=== PATIENT | female | born 1950 | race Caucasian/White ===

== ENCOUNTER 2018-07-22 09:05 | Observation (INO) | payer BC, OTHER ==
--- NOTE | 2018-07-22 09:14 | PDOC ---
History of Present Illness - General Chief Complaint: Tachycardia Stated Complaint: FAST HEART RATE Time Seen by Provider: 07/22/18 09:14 - History of Present Illness Initial Comments: 07/22/18 09:35 Ms. Fu is a 68 yo female w/ pmh of prior episodes of obesity, afib ( intermittent, not on ac), previous anemia, Hepatitis C (s/p treatment 3 years ago), recently finished ABX for sinus infection 2 days ago (unknown which) who presents for evaluation of palpitations and chest pressure since she woke up this morning around 0730. Patient reports she has never had symptoms lasting this long in the past and elected to come in for further evaluation. Denies any chest pain, denies shortness of breath, denies any other associated symptoms. The patient denies chest pain, shortness of breath, headache and dizziness. Denies fever, chills, nausea, vomit, diarrhea and constipation. Denies dysuria, frequency, urgency and hematuria. Past History - Past Medical History Allergies/Adverse Reactions: Allergies Allergy/AdvReac Type Severity Reaction Status Date / Time Cephalosporins Allergy Difficulty Verified 07/22/18 09:06 Breathing Home Medications: Ambulatory Orders NK [No Known Home Medication] 07/22/18 COPD: No Other medical history: OBESITY - Suicide/Smoking/Psychosocial Hx Smoking History: Former smoker Have you smoked in the past 12 months: No Information on smoking cessation initiated: No Hx Alcohol Use: No Review of Systems - Review of Systems Comments:: 07/22/18 09:36 GENERAL/CONSTITUTIONAL: No fever or chills. No weakness. HEAD, EYES, EARS, NOSE AND THROAT: No change in vision. No ear pain or discharge. No sore throat. CARDIOVASCULAR: +Palpitations /chest pressure as described. No chest pain or shortness of breath RESPIRATORY: No cough, wheezing, or hemoptysis. GASTROINTESTINAL: No nausea, vomiting, diarrhea or constipation. GENITOURINARY: No dysuria, frequency, or change in urination. MUSCULOSKELETAL: No joint or muscle swelling or pain. No neck or back pain. SKIN: No rash NEUROLOGIC: No headache, vertigo, loss of consciousness, or change in strength/ sensation. ENDOCRINE: No increased thirst. No abnormal weight change HEMATOLOGIC/LYMPHATIC: No anemia, easy bleeding, or history of blood clots. ALLERGIC/IMMUNOLOGIC: No hives or skin allergy. *Physical Exam - Vital Signs Last Vital Signs Temp Pulse Resp BP Pulse Ox 98.1 F 153 H 20 153/82 98 07/22/18 09:05 07/22/18 09:05 07/22/18 09:05 07/22/18 09:05 07/22/18 09:05 - Physical Exam Comments: 07/22/18 09:36 GENERAL: Awake, alert, and fully oriented, in no acute distress HEAD: No signs of trauma, normocephalic, atraumatic EYES: PERRLA, EOMI, sclera anicteric, conjunctiva clear ENT: Auricles normal inspection, hearing grossly normal, nares patent, oropharynx clear without exudates. Moist mucosa NECK: Normal ROM, supple, no lymphadenopathy, JVD, or masses LUNGS: +Exam limited by body habitus, however No distress, speaks full sentences , clear to auscultation bilaterally HEART: Regular rate and rhythm, normal S1 and S2, no murmurs, rubs or gallops, peripheral pulses normal and equal bilaterally. ABDOMEN: Soft, nontender, normoactive bowel sounds. No guarding, no rebound. No masses EXTREMITIES: Normal inspection, Normal range of motion, no edema. No clubbing or cyanosis. NEUROLOGICAL: Cranial nerves II through XII grossly intact. Normal speech, normal gait, no focal sensorimotor deficits SKIN: Warm, Dry, normal turgor, no rashes or lesions noted. 07/22/18 11:32 Moderate Sedation - Procedure Monitoring Vital Signs: Procedure Monitoring Vital Signs Temperature 98.1 F 07/22/18 09:05 Pulse Rate 153 H 07/22/18 09:05 Respiratory Rate 20 07/22/18 09:05 Blood Pressure 153/82 07/22/18 09:05 O2 Sat by Pulse Oximetry (%) 98 07/22/18 09:05 ED Treatment Course - LABORATORY CBC & Chemistry Diagram: 07/22/18 09:30 07/22/18 09:30 Medical Decision Making - Critical Care Time Total Critical Care Time (minutes): 30 Critical Care Statement: The care of this patient involved high complexity decision making to prevent further life threatening deterioration of the patient 's condition and/or to evaluate & treat vital organ system(s) failure or risk of failure. - Medical Decision Making 07/22/18 11:32 Ms. Fu is a 68 yo female w/ pmh as described who presents for evaluation of symptoms concerning for ACS vs. PE vs. anxiety. EKG done at arrival revealed 2: 1 aflutter pattern. Patient rate controlled with 20mg IV diltiazem which slowed patient to 80's and revealed afib rhythm. Patient given ASA and 1L NS. Patient later noted to have converted to sinus rhythm in 80's with no further intervention. 07/22/18 11:37 Patient labs grossly wnl as below. Discussed patient with [employer] Apprentice (Dr. Wilson covering for Dr. Costello) who has not seen patient in over a year. Last echo from 2010. Last EKG distant as well. No further history available. Discussed patient with hospitalist who will admit for cards consult. Chest CTA also ordered after CXR revealed concern for fluid in left lung ward to r/o pneumonia vs. possible PE as exacerbating factor. 07/22/18 12:28 Discussed patient with covering service for Dr. Gaston who recommended Heparin drip and will follow-up inpatient. Chest CTA negative. Laboratory Results - last 24 hr 07/22/18 07/22/18 07/22/18 09:30 09:30 09:30 WBC 6.9 RBC 5.14 Hgb 16.0 H Hct 47.7 H MCV 92.7 MCH 31.2 MCHC 33.7 RDW 12.5 Plt Count 275 MPV 7.5 Absolute Neuts (auto) 5.0 Neutrophils % 73.0 Lymphocytes % 17.0 Monocytes % 8.1 Eosinophils % 1.7 Basophils % 0.2 PT with INR 12.0 INR 1.07 Sodium 135 L Potassium 4.0 Chloride 104 Carbon Dioxide 27 Anion Gap 4 L BUN 9 Creatinine 0.6 Creat Clearance w eGFR > 60 Random Glucose 123 H Calcium 8.9 Magnesium 2.1 Total Bilirubin 1.1 H AST 27 ALT 24 Alkaline Phosphatase 102 Troponin I Total Protein 7.5 Albumin 3.9 Urine Color Urine Appearance Urine pH Ur Specific [place] Urine Protein Urine Glucose (UA) Urine Ketones Urine Blood Urine Nitrite Urine Bilirubin Urine Urobilinogen Ur Leukocyte Esterase 07/22/18 07/22/18 09:30 10:23 WBC RBC Hgb Hct MCV MCH MCHC RDW Plt Count MPV Absolute Neuts (auto) Neutrophils % Lymphocytes % Monocytes % Eosinophils % Basophils % PT with INR INR Sodium Potassium Chloride Carbon Dioxide Anion Gap BUN Creatinine Creat Clearance w eGFR Random Glucose Calcium Magnesium Total Bilirubin AST ALT Alkaline Phosphatase Troponin I < 0.03 Total Protein Albumin Urine Color Yellow Urine Appearance Clear Urine pH 8.5 H Ur Specific [place] 1.015 Urine Protein Negative Urine Glucose (UA) Negative Urine Ketones Negative Urine Blood Negative Urine Nitrite Negative Urine Bilirubin Negative Urine Urobilinogen 0.2 Ur Leukocyte Esterase Negative *DC/Admit/Observation/Transfer Diagnosis at time of Disposition: Atrial fibrillation with RVR Afib Qualifiers: Atrial fibrillation type: unspecified Qualified Code(s): I48.91 - Unspecified atrial fibrillation - Discharge Dispostion Condition at time of disposition: Stable Decision to Admit order: Yes - Referrals - Patient Instructions - Post Discharge Activity
[2018-07-22] MEDS ORDERED: SODIUM CHLORIDE 1,000 ML IV STA (09:32)
[2018-07-22] MEDS ORDERED: ASPIRIN 81 MG CHEWABLE TABLETS PO ONE (09:32)
[2018-07-22] MEDS ORDERED: dilTIAZem HCL 50 MG/10 ML - 10 ML VIAL IVPUSH ONE (09:39)
[2018-07-22] MEDS ORDERED: ASPIRIN 81 MG CHEWABLE TABLETS ONE (09:39)
[2018-07-22] MEDS ORDERED: dilTIAZem HCL 50 MG/10 ML - 10 ML VIAL ONE (09:42)
[2018-07-22 09:50] LABS: BASO % 0.2 % (0-2.0); EOS % 1.7 % (0-4.5); HEMATOCRIT 47.7 % (32.4-45.2); MCH 31.2 pg (25.7-33.7); MCHC 33.7 g/dl (32.0-36.0); MEAN CELL VOLUME 92.7 fl (80-96); MEAN PLT VOLUME 7.5 fl (7.5-11.1); MONO % 8.1 % (3.8-10.2); PLATELET COUNT 275 K/MM3 (134-434); RBC 5.14 M/mm3 (3.60-5.2); RDW 12.5 % (11.6-15.6); WHITE BLOOD COUNT 6.9 K/mm3 (4.0-10.8)
[2018-07-22 09:57] LABS: INR 1.07 (0.82-1.09)
[2018-07-22 10:02] LABS: ALBUMIN 3.9 g/dl (3.4-5.0); ALK PHOS 102 U/L (45-117); ANION GAP 4 MMOL/L (8-16); BILIRUBIN,TOTAL 1.1 mg/dl (0.2-1); BLOOD UREA NITROGEN 9 mg/dl (7-18); CALCIUM 8.9 mg/dl (8.5-10); CHLORIDE 104 mmol/L (98-107); CO2 27 mmol/L (21-32); CREATININE 0.6 mg/dl (0.55-1.3); GLUCOSE,RANDOM 123 mg/dl (74-106); MAGNESIUM 2.1 mg/dL (1.8-2.4); SGOT/AST 27 U/L (15-37); SGPT/ALT 24 U/L (13-61); SODIUM 135 mmol/L (136-145); TOT PROT 7.5 g/dl (6.4-8.2)
--- NOTE | 2018-07-22 10:16 | PDOC ---
Attending Attestation - Resident Resident Name: MargaritaManuel - ED Attending Attestation I have performed the following: I have examined & evaluated the patient, The case was reviewed & discussed with the resident, I agree w/resident's findings & plan, Exceptions are as noted - HPI HPI: 07/22/18 10:09 68 yo F h/o hep c ( treated) anemia intermittent afib here with c/o palpitations and chest presure. starting today. pt states she recently finished abx for sinus infection. has not seen pcp in long time, saw professor of practice over one year ago dr Costello. does not take blood thinners or rate control meds. not currently on any prescription medications. except eye drops. no sob. no leg swelling. no n/v feeling better overall since at hospital. feels pressure radiated to her back and arm " could feel her hear beat in her back" - Physicial Exam PE: 07/22/18 10:12 awake alert lungs clear bilaterally heart irreg reg. abd soft obese nt. ext wwp no edema. no calf tenderness pulses symmetric. nuero alert oriented x 3. - Medical Decision Making 07/22/18 10:12 differential anemia. electrolyte abnormality. thyroid dysfunction, infection , such as uti pln cxr ekg labs trop tsh ua. will likely require admission for afib. will d/w professor of practice for anticoagulation. rate control with diltizaem 20 mg. pt rate improved from 150 to 89. will observe, due to r/o acs, and rate control. 07/22/18 11:07 d/wdr melinda covering for dr costello, states hasn't seen dr costello since 2014. no h/o afib in file. pt had echo and stress in 2010 which was reportedly normal, but had st depressions on her ekg per note. 07/22/18 11:28 focused ED ultrasound TTE indication sob, chest pain new onset afib. cardiac views obtained using phased array probe in parasternal long and short, subxiphoid, and apical. difficult due to body habitus. no visualized pericardial effusion. no rv dilation or strain pattern. good contractility. impression: normal TTE bilat lungs scanned. no plueral effusion noted although limited due to body habitus. bilat lung sliding. impression: normal lung exam.no plueral effusion plan ct chest due to suspicion for pleural effusion on cxr vs. infilatre. p pt h/o cough, nonproductive. also described sob and feeling dizzy with ambulating with dog recently. 07/22/18 11:33 pt with repeat ekg now in sinus rhythm. heart rate in 50's. Heart Score/ECG Review #1 General ECG Interpretation: No acute ischemic changes Compared to previous ECG there are: Other (afib with rvr 153 bpm) #2 General ECG Interpretation: Sinus Rhythm, Normal Rate (61), Normal Intervals, No acute ischemic changes ED Point of Care Ultrasound Performing Physician: Kaylie Lagunas Assisting/Performing Resident: Manuel Avila Procedures - Bedside Ultrasound Bedside Ultrasound: Cardiac Other: normal echo see mdm
[2018-07-22 10:26] LABS: PH,URINE 8.5 (4.5-8); URINE APPEARANCE Clear; URINE BILIRUBIN Negative (NEGATIVE); URINE COLOR Yellow; URINE GLUCOSE (UA) Negative (NEGATIVE); URINE KETONE Negative (NEGATIVE); URINE LEUK ESTERASE Negative (NEGATIVE); URINE NITRITE Negative (NEGATIVE); URINE PROTEIN Negative (NEGATIVE); URINE UROBILINOGEN 0.2 (0.2-1.0)
[2018-07-22] MEDS ORDERED: HEPARIN NA (PORCINE) 5,000 UNITS/ML 1ML VIAL IVPUSH PRN ×2 (12:27)
[2018-07-22] MEDS ORDERED: HEPARIN NA (PORCINE) 5,000 UNITS/ML 1ML VIAL ONE (12:32)
[2018-07-22] MEDS ORDERED: HEPARIN INFUSION - 25,000 UNITS/500 ML INFUS.BAG IVPB ONE (12:33)
[2018-07-22] MEDS: HEPARIN - 25,000 UNIT in SODIUM CHLORIDE 495 ML IV SCH (12:45)
--- NOTE | 2018-07-22 13:35 | CONSULT ---
Consult Consult Specialty:: Cardiology Referred by:: ED Reason for Consultation:: Atrial Flutter - History of Present Illness Chief Complaint: Palpitations History of Present Illness: 68 yo female Followed by outside cardiology (Dr. Nestor Costello), last seen 1 year ago. Followed for general CV risk assessment/reduction May have been told to have ?atrial fibrillation in the past. Prior HepC s/p treatment 3 years ago Now presents with sudden onset of severe palpitations. Initial ECG done at 09:17 on 07/22/2018 showed AFL 2:1 with VR 150s. Received IV dilt and reportedly developed AF to 80s and eventual NSR to 60s. [place] very fatigued yesterday, went to bed at 7:30PM Has gained 15# weight since Holidays (+) TYRELL but not on CPAP CTA negative for PE No known thyroid disease No CHF, HTN, DM, prior CVA or known vascular disease No known bleeding issues/anemia - History Source History Provided By: Patient Limitations to Obtaining History: No Limitations - Alcohol/Substance Use Hx Alcohol Use: No - Smoking History Smoking history: Former smoker Have you smoked in the past 12 months: No Home Medications - Allergies Allergies/Adverse Reactions: Allergies Allergy/AdvReac Type Severity Reaction Status Date / Time Cephalosporins Allergy Difficulty Verified 07/22/18 09:06 Breathing - Home Medications Home Medications: Ambulatory Orders NK [No Known Home Medication] 07/22/18 Family Disease History - Family Disease History Family History: Unremarkable Review of Systems - Review of Systems Constitutional: reports: No Symptoms Eyes: reports: No Symptoms HENT: reports: No Symptoms Neck: reports: No Symptoms Cardiovascular: reports: Palpitations, Shortness of Breath Respiratory: reports: No Symptoms Gastrointestinal: reports: No Symptoms Neurological: reports: Dizziness Physical Exam Vital Signs: Vital Signs Temperature 98.1 F 07/22/18 09:05 Pulse Rate 61 07/22/18 13:00 Respiratory Rate 18 07/22/18 13:00 Blood Pressure 115/77 07/22/18 13:00 O2 Sat by Pulse Oximetry (%) 99 07/22/18 13:00 Constitutional: Yes: Well Nourished, No Distress, Calm Eyes: Yes: WNL HENT: Yes: WNL Neck: Yes: WNL Cardiovascular: Yes: Regular Rate and Rhythm Respiratory: Yes: WNL, CTA Bilaterally Gastrointestinal: Yes: Normal Bowel Sounds, Abdomen, Obese Musculoskeletal: Yes: WNL Extremities: Yes: WNL Edema: No Labs: CBC, BMP 07/22/18 09:30 07/22/18 09:30 Imaging - Results X-ray: Report Reviewed (No active disease) Cat Scan: Report Reviewed (No PE.) EKG: Image Reviewed (ECG on 07/22/2018 at 09:17 Aflutter 2:1 ECG on 07/22/2018 at 11 :34 NSR at 61) Assessment/Plan 68 yo obese female with new onset atrial flutter 1) Aflutter -Now in NSR after cardizem IV -Would continue Cardizem CD 120mg QD -CHADs-Vasc = 2 (age and female) -Start IV UFH (Goal PTT 60-80sec), follow platelets/PTT per protocol -Echo to assess RV given h/o untreated TYRELL which is likely etiology of her atrial arrhythmia (no PE, normal TSH) Will follow
[2018-07-22 14:29] VITALS: BMI 43.7
--- NOTE | 2018-07-22 14:46 | HP ---
CHIEF COMPLAINT:chest pressure, palpitations PCP:Dr. Fidelina Fair HISTORY OF PRESENT ILLNESS: Mary Fu is a 68 yr old F, medical condition TYRELL, (not on CPAP) at home , obese, Hep C, treated, presents to ED with chest pressure and 'heart racing' that woke her up this morning at 7:30am. pt checked her pulse at home was in 150 's. In ED received IV cardizem, returned to NSR. Cardio consulted in ED, started on Heparin drip, Cardizem po. pt seen at bedside, denies chest pain, palpitations, report physical with Primary care within this year normal. ER course was notable for: (1)Aflutter 150's, received IV Cardizem, returned to NSR (2)CTA neg for PE (3) trop neg x1 Recent Travel: PAST MEDICAL HISTORY:hx of Hep C (treated), hx of afib, TYRELL PAST SURGICAL HISTORY: Social History: Smoking:denies Alcohol:denies Drugs: denies Family History: Allergies Cephalosporins Allergy (Verified 07/22/18 09:06) Difficulty Breathing DIFF BREATHING AND RASH HOME MEDICATIONS: Home Medications Medication Instructions Recorded NK [No Known Home Medication] 07/22/18 REVIEW OF SYSTEMS CONSTITUTIONAL: Absent: fever, chills, diaphoresis, generalized weakness, malaise, loss of appetite, weight change HEENT: Absent: rhinorrhea, nasal congestion, throat pain, throat swelling, difficulty swallowing, mouth swelling, ear pain, eye pain, visual changes CARDIOVASCULAR: Absent: chest pain, syncope, palpitations, irregular heart rate, lightheadedness , peripheral edema RESPIRATORY: Absent: cough, shortness of breath, dyspnea with exertion, orthopnea, wheezing, stridor, hemoptysis GASTROINTESTINAL: Absent: abdominal pain, abdominal distension, nausea, vomiting, diarrhea, constipation, melena, hematochezia GENITOURINARY: Absent: dysuria, frequency, urgency, hesitancy, hematuria, flank pain, genital pain MUSCULOSKELETAL: Absent: myalgia, arthralgia, joint swelling, back pain, neck pain SKIN: Absent: rash, itching, pallor HEMATOLOGIC/IMMUNOLOGIC: Absent: easy bleeding, easy bruising, lymphadenopathy, frequent infections ENDOCRINE: Absent: unexplained weight gain, unexplained weight loss, heat intolerance, cold intolerance NEUROLOGIC: Absent: headache, focal weakness or paresthesias, dizziness, unsteady gait, seizure, mental status changes, bladder or bowel incontinence PSYCHIATRIC: Absent: anxiety, depression, suicidal or homicidal ideation, hallucinations. PHYSICAL EXAMINATION Vital Signs - 24 hr 07/22/18 07/22/18 07/22/18 09:05 09:50 11:48 Temperature 98.1 F Pulse Rate 153 H Pulse Rate [ 84 62 Left Apical] Respiratory 20 16 16 Rate Blood Pressure 153/82 Blood Pressure 103/73 114/70 [Left Arm] O2 Sat by Pulse 98 100 98 Oximetry (%) 07/22/18 07/22/18 07/22/18 13:00 13:30 13:58 Temperature 97.9 F Pulse Rate 61 Pulse Rate [ 61 61 Left Apical] Respiratory 18 18 18 Rate Blood Pressure 108/56 L Blood Pressure 115/77 115/69 [Left Arm] O2 Sat by Pulse 99 97 99 Oximetry (%) GENERAL: Awake, alert, and fully oriented, in no acute distress. HEAD: Normal with no signs of trauma. EYES: Pupils equal, round and reactive to light, extraocular movements intact, sclera anicteric, conjunctiva clear. No lid lag. EARS, NOSE, THROAT: Ears normal, nares patent, oropharynx clear without exudates. Moist mucous membranes. NECK: Normal range of motion, supple without lymphadenopathy, JVD, or masses. LUNGS: Breath sounds equal, clear to auscultation bilaterally. No wheezes, and no crackles. No accessory muscle use. HEART: Regular rate and rhythm, normal S1 and S2 without murmur, rub or gallop. ABDOMEN: Soft, nontender, not distended, normoactive bowel sounds, no guarding, no rebound, no masses. No hepatomegaly or splenomegaly. MUSCULOSKELETAL: Normal range of motion at all joints. No bony deformities or tenderness. No CVA tenderness. UPPER EXTREMITIES: 2+ pulses, warm, well-perfused. No cyanosis. No clubbing. No peripheral edema. LOWER EXTREMITIES: 2+ pulses, warm, well-perfused. No calf tenderness. No peripheral edema. NEUROLOGICAL: Cranial nerves II-XII intact. Normal speech. Normal gait. PSYCHIATRIC: Cooperative. Good eye contact. Appropriate mood and affect. SKIN: Warm, dry, normal turgor, no rashes or lesions noted, normal capillary refill. Laboratory Results - last 24 hr 07/22/18 07/22/18 07/22/18 09:30 09:30 09:30 WBC 6.9 RBC 5.14 Hgb 16.0 H Hct 47.7 H MCV 92.7 MCH 31.2 MCHC 33.7 RDW 12.5 Plt Count 275 MPV 7.5 Absolute Neuts (auto) 5.0 Neutrophils % 73.0 Lymphocytes % 17.0 Monocytes % 8.1 Eosinophils % 1.7 Basophils % 0.2 PT with INR 12.0 INR 1.07 PTT (Actin FS) Sodium 135 L Potassium 4.0 Chloride 104 Carbon Dioxide 27 Anion Gap 4 L BUN 9 Creatinine 0.6 Creat Clearance w eGFR > 60 Random Glucose 123 H Calcium 8.9 Magnesium 2.1 Total Bilirubin 1.1 H AST 27 ALT 24 Alkaline Phosphatase 102 Troponin I Total Protein 7.5 Albumin 3.9 TSH Urine Color Urine Appearance Urine pH Ur Specific [place] Urine Protein Urine Glucose (UA) Urine Ketones Urine Blood Urine Nitrite Urine Bilirubin Urine Urobilinogen Ur Leukocyte Esterase 07/22/18 07/22/18 07/22/18 09:30 09:30 09:30 WBC RBC Hgb Hct MCV MCH MCHC RDW Plt Count MPV Absolute Neuts (auto) Neutrophils % Lymphocytes % Monocytes % Eosinophils % Basophils % PT with INR INR PTT (Actin FS) 38.6 H Sodium Potassium Chloride Carbon Dioxide Anion Gap BUN Creatinine Creat Clearance w eGFR Random Glucose Calcium Magnesium Total Bilirubin AST ALT Alkaline Phosphatase Troponin I < 0.03 Total Protein Albumin TSH 0.81 Urine Color Urine Appearance Urine pH Ur Specific [place] Urine Protein Urine Glucose (UA) Urine Ketones Urine Blood Urine Nitrite Urine Bilirubin Urine Urobilinogen Ur Leukocyte Esterase 07/22/18 10:23 WBC RBC Hgb Hct MCV MCH MCHC RDW Plt Count MPV Absolute Neuts (auto) Neutrophils % Lymphocytes % Monocytes % Eosinophils % Basophils % PT with INR INR PTT (Actin FS) Sodium Potassium Chloride Carbon Dioxide Anion Gap BUN Creatinine Creat Clearance w eGFR Random Glucose Calcium Magnesium Total Bilirubin AST ALT Alkaline Phosphatase Troponin I Total Protein Albumin TSH Urine Color Yellow Urine Appearance Clear Urine pH 8.5 H Ur Specific [place] 1.015 Urine Protein Negative Urine Glucose (UA) Negative Urine Ketones Negative Urine Blood Negative Urine Nitrite Negative Urine Bilirubin Negative Urine Urobilinogen 0.2 Ur Leukocyte Esterase Negative ASSESSMENT/PLAN: Mary Fu is a 68 yr old F,medical condition hx of afib (not on BB, or anticoagulation), hep C, treated, TYRELL admitted under observation for Admitting Diagnosis Atrial Fibrillation Chronic Problems TYRELL hx of hep c A/P: #Atrial flutter -Admit to tele obs -EKG after IV cardizem- NSR -IV heparin, monitor PTT -po cardizem -Cardio note appreciated -THS wnl -CTA neg for PE -Echo ordered #TYRELL -pt does not use CPAP #Hx of Hep C-treated Full Code FEN: Fluid encourage po Electrolyte monitor labs Nutrition -Vegan Diet DVT prophylaxis Heparin drip Visit type - Emergency Visit Emergency Visit: Yes ED Registration Date: 07/22/18 Care time: The patient presented to the Emergency Department on the above date and was hospitalized for further evaluation of their emergent condition. - New Patient This patient is new to me today: Yes Date on this admission: 07/22/18 - Critical Care Critical Care patient: No
--- NOTE | 2018-07-22 16:50 | EKG ---
Test Reason : Blood Pressure : / mmHG Vent. Rate : 150 BPM Atrial Rate : 300 BPM P-R Int : 000 ms QRS Dur : 078 ms QT Int : 296 ms P-R-T Axes : 262 037 243 degrees QTc Int : 467 ms ATRIAL FLUTTER WITH 2:1 A-V CONDUCTION MARKED ST ABNORMALITY, POSSIBLE INFERIOR SUBENDOCARDIAL INJURY ABNORMAL ECG NO PREVIOUS ECGS AVAILABLE Confirmed by Xiomara Garcia ([id number]) on 07/22/2018 4:50:04 PM Referred By: YANET ISSA Confirmed By:Xiomara Garcia
[2018-07-22 20:16] LABS: INR 1.14 (0.82-1.09); PROTHROMBIN TIME (PATIENT) 12.7 SEC (10.2-13.0)
[2018-07-23 09:41] LABS: HEMATOCRIT 42.4 % (32.4-45.2); HEMOGLOBIN 13.9 GM/dl (10.7-15.3); MCH 30.6 pg (25.7-33.7); MCHC 32.8 g/dl (32.0-36.0); MEAN CELL VOLUME 93.5 fl (80-96); MEAN PLT VOLUME 7.7 fl (7.5-11.1); PLATELET COUNT 245 K/MM3 (134-434); RBC 4.53 M/mm3 (3.60-5.2); RDW 12.7 % (11.6-15.6); WHITE BLOOD COUNT 5.1 K/mm3 (4.0-10.8)
--- NOTE | 2018-07-23 13:25 | PN ---
Progress Note, Physician History of Present Illness: No cv complaints overnight Tele with brief AFib at 14:19 yesterday - Current Medication List Current Medications: Active Medications Diltiazem HCl (Cardizem Cd -) 120 mg PO DAILY ZINA Last Admin: 07/23/18 09:46 Dose: 120 mg Heparin Sodium (Porcine) (Heparin -) 1,000 unit IVPUSH PRN PRN PRN Reason: Heparin Heparin Sodium (Porcine) (Heparin -) 5,000 unit IVPUSH PRN PRN PRN Reason: Heparin Last Admin: 07/22/18 12:35 Dose: 5,000 unit Heparin Sodium (Porcine) 25, (000 unit/ Sodium Chloride) 500 mls @ 20 mls/hr IV TITR ZINA; Protocol Last Titration: 07/22/18 21:20 Dose: 850 unit/hr, 17 mls/hr - Objective Vital Signs: Vital Signs Temperature 97.8 F 07/23/18 06:00 Pulse Rate 60 07/23/18 09:42 Respiratory Rate 18 07/23/18 09:42 Blood Pressure 123/83 07/23/18 09:42 O2 Sat by Pulse Oximetry (%) 100 07/23/18 09:43 Constitutional: Yes: No Distress Eyes: Yes: WNL HENT: Yes: WNL Neck: Yes: WNL Cardiovascular: Yes: Regular Rate and Rhythm Respiratory: Yes: CTA Bilaterally Musculoskeletal: Yes: WNL Extremities: Yes: WNL Edema: No Labs: CBC, BMP 07/23/18 09:00 07/22/18 09:30 INR, PTT INR 1.14 (0.82-1.09) 07/22/18 19:40 Assessment/Plan 1) Aflutter/Fib -Now in NSR after cardizem IV -Tolerating Cardizem CD 120mg QD -CHADs-Vasc = 2 (age and female) -Will transition to PO Apixaban 5mg PO BID, first dose tonight -Echo to assess RV given h/o untreated TYRELL which is likely etiology of her atrial arrhythmia (no PE, normal TSH) Discussed with both patient and her at bedside
[2018-07-23] MEDS: HEPARIN - 25,000 UNIT in SODIUM CHLORIDE 495 ML IV SCH (13:35)
--- NOTE | 2018-07-23 14:01 | PN ---
Physical Exam: SUBJECTIVE: Patient seen and examined, pt seen by cardio, Echo in AM, heparin drip will be dc at 6pm, eliquis at 2200. pt denies chest pain, sob, dizziness. OBJECTIVE: Vital Signs Period Temp Pulse Resp BP Sys/Thompson Pulse Ox Last 24 Hr 97.8 F-98.7 F 60-66 16-19 123-146/55-83 97-100 GENERAL: The patient is awake, alert, and fully oriented, in no acute distress. HEAD: Normal with no signs of trauma. EYES: PERRL, extraocular movements intact, sclera anicteric, conjunctiva clear. No ptosis. ENT: Ears normal, nares patent, oropharynx clear without exudates, moist mucous membranes. NECK: Trachea midline, full range of motion, supple. LUNGS: Breath sounds equal, clear to auscultation bilaterally, no wheezes, no crackles, no accessory muscle use. HEART: Regular rate and rhythm, S1, S2 without murmur, rub or gallop. ABDOMEN: Soft, nontender, nondistended, normoactive bowel sounds, no guarding, no rebound, no hepatosplenomegaly, no masses. EXTREMITIES: 2+ pulses, warm, well-perfused, no edema. NEUROLOGICAL: Cranial nerves II through XII grossly intact. Normal speech, gait not observed. PSYCH: Normal mood, normal affect. SKIN: Warm, dry, normal turgor, no rashes or lesions noted Laboratory Results - last 24 hr 07/22/18 07/22/18 07/23/18 19:40 19:40 03:20 WBC RBC Hgb Hct MCV MCH MCHC RDW Plt Count MPV PT with INR 12.7 INR 1.14 PTT (Actin FS) 105.9 H 50.6 H 07/23/18 07/23/18 09:00 09:00 WBC 5.1 RBC 4.53 Hgb 13.9 Hct 42.4 MCV 93.5 MCH 30.6 MCHC 32.8 RDW 12.7 Plt Count 245 MPV 7.7 PT with INR INR PTT (Actin FS) 56.9 H Active Medications Generic Name Dose Route Start Last Admin Trade Name Freq PRN Reason Stop Dose Admin Apixaban 5 mg 07/23/18 22:00 Eliquis - PO BID ZINA Diltiazem HCl 120 mg 07/23/18 10:00 07/23/18 09:46 Cardizem Cd - PO 120 mg DAILY ZINA Administration Heparin Sodium (Porcine) 25, 500 mls @ 20 mls/hr 07/22/18 12:30 07/23/18 13: 35 000 unit/ Sodium Chloride IV 07/23/18 18:00 850 unit/hr TITR ZINA 17 mls/hr Administration Protocol 1,000 UNIT/HR ASSESSMENT/PLAN: Mary Fu is a 68 yr old F,medical condition hx of afib (not on BB, or anticoagulation), hep C, treated, TYRELL admitted under observation for Admitting Diagnosis Atrial Fibrillation Chronic Problems TYRELL hx of hep c A/P: #Atrial fib -po cardizem -IV heparin,dc at 6pm start eliquis tonight -po cardizem -Cardio note appreciated -THS wnl -CTA neg for PE -Echo in am #TYRELL -pt does not use CPAP #Hx of Hep C-treated Full Code FEN: Fluid encourage po Electrolyte monitor labs Nutrition -Vegan Diet DVT prophylaxis Heparin drip Visit type - Emergency Visit Emergency Visit: Yes ED Registration Date: 07/22/18 Care time: The patient presented to the Emergency Department on the above date and was hospitalized for further evaluation of their emergent condition. - New Patient This patient is new to me today: No - Critical Care Critical Care patient: No
[2018-07-23] MEDS: APIXABAN 5 MG TABLET PO SCH (21:16)
[2018-07-24 08:18] LABS: HEMATOCRIT 43.1 % (32.4-45.2); HEMOGLOBIN 14.4 GM/dl (10.7-15.3); MCHC 33.3 g/dl (32.0-36.0); MEAN CELL VOLUME 93.1 fl (80-96); MEAN PLT VOLUME 7.6 fl (7.5-11.1); PLATELET COUNT 237 K/MM3 (134-434); RBC 4.63 M/mm3 (3.60-5.2); RDW 12.5 % (11.6-15.6); WHITE BLOOD COUNT 5.6 K/mm3 (4.0-10.8)
[2018-07-24 08:27] LABS: ALBUMIN 3.5 g/dl (3.4-5.0); ALK PHOS 97 U/L (45-117); ANION GAP 7 MMOL/L (8-16); BILIRUBIN,TOTAL 0.7 mg/dl (0.2-1); BLOOD UREA NITROGEN 9 mg/dl (7-18); CALCIUM 8.9 mg/dl (8.5-10); CHLORIDE 104 mmol/L (98-107); CO2 28 mmol/L (21-32); CREATININE 0.7 mg/dl (0.55-1.3); GLUCOSE,RANDOM 115 mg/dl (74-106); POTASSIUM 5.3 mmol/L (3.5-5.1); SGOT/AST 20 U/L (15-37); SGPT/ALT 20 U/L (13-61); SODIUM 139 mmol/L (136-145); TOT PROT 6.8 g/dl (6.4-8.2)
[2018-07-24] MEDS: APIXABAN 5 MG TABLET PO SCH (09:32)
--- NOTE | 2018-07-24 13:52 | DS ---
Physical Exam: SUBJECTIVE: Patient seen and examined OBJECTIVE: Vital Signs Period Temp Pulse Resp BP Sys/Thompson Pulse Ox Last 24 Hr 97.6 F-98.7 F 55-63 18-19 119-146/55-63 97 PHYSICAL EXAM GENERAL: The patient is awake, alert, and fully oriented, in no acute distress. HEAD: Normal with no signs of trauma. EYES: PERRL, extraocular movements intact, sclera anicteric, conjunctiva clear. ENT: Ears normal, nares patent, oropharynx clear without exudates, moist mucous membranes. NECK: Trachea midline, full range of motion, supple. LUNGS: Breath sounds equal, clear to auscultation bilaterally, no wheezes, no crackles, no accessory muscle use. HEART: Regular rate and rhythm, S1, S2 without murmur, rub or gallop. ABDOMEN: Soft, nontender, nondistended, normoactive bowel sounds, no guarding, no rebound, no hepatosplenomegaly, no masses. EXTREMITIES: 2+ pulses, warm, well-perfused, no edema. NEUROLOGICAL: Cranial nerves II through XII grossly intact. Normal speech, gait not observed. PSYCH: Normal mood, normal affect. SKIN: Warm, dry, normal turgor, no rashes or lesions noted. LABS Laboratory Results - last 24 hr 07/24/18 07/24/18 07/24/18 07:15 07:15 07:15 WBC 5.6 RBC 4.63 Hgb 14.4 Hct 43.1 MCV 93.1 MCH 31.0 MCHC 33.3 RDW 12.5 Plt Count 237 MPV 7.6 PTT (Actin FS) 41.2 H Sodium 139 Potassium 5.3 H Chloride 104 Carbon Dioxide 28 Anion Gap 7 L BUN 9 Creatinine 0.7 Creat Clearance w eGFR > 60 Random Glucose 115 H Calcium 8.9 Magnesium 2.0 Total Bilirubin 0.7 AST 20 ALT 20 Alkaline Phosphatase 97 Total Protein 6.8 Albumin 3.5 HOSPITAL COURSE: Date of Admission:07/22/18 Date of Discharge: 07/24/18 Pre hospital course 68 year-old female with a PMH significant for hepatitis C treated 3 years ago. Patient reported a possible history of afib in the past. She last saw direct care staffer Dr. Costello a year ago. A check with Dr. Costello's covering provider showed no documented history of afib in patient's chart. Patient presented to the ED for evaluation of palpitations and chest pressure x several hours. Denied any chest pain, denies shortness of breath, denies any other associated symptoms. ED course Initial ECG showed aflutter 2:1 @150bpm. Patient was given diltiazem IVP 20mg x 1 and converted to sinus rhythm. Subsequent hospital course Patient was continued on cardizem CD 120mg daily. Rate has been well-controlled in the 60s. Was initially put on heparin drip for a CHADs-Vasc = 2, then converted to Eliquis 5mg BID. CTA was negative for PE and otherwise unremarkable. Echocardiagram showed LV normal, EF 60-65%; RV normal; trace to mild TR; mild AI. No further episodes of afib/aflutter. Discharged on PO cardizem and Eliquis. Patient to follow up with private direct care staffer. Minutes to complete discharge: 35 Discharge Summary Reason For Visit: ATRIAL FIBRILLATION Current Active Problems Afib (Acute) Atrial fibrillation with RVR (Acute) Condition: Improved - Instructions Diet, Activity, Other Instructions: Two prescriptions have been sent to your pharmacy. One is for Cardizem and the other is for Eliquis. Take these medications as directed. It is very important you follow up with your direct care staffer, Dr. Costello, within one week of your discharge. Return to the emergency department for any new or worsening symptoms. Referrals: Nestor Costello [Non Staff, Medical] - Disposition: HOME - Home Medications Comprehensive Discharge Medication List: Ambulatory Orders NK [No Known Home Medication] 07/22/18 This patient is new to me today: Yes Date on this admission: 07/25/18 Emergency Visit: Yes ED Registration Date: 07/22/18 Care time: The patient presented to the Emergency Department on the above date and was hospitalized for further evaluation of their emergent condition. Critical Care patient: No - Discharge Referral Referred to [facility] Med P.C.: No
[2018-07-24 14:35] VITALS: BP 106/50; PULSE 61; TEMP 98.4
--- NOTE | 2018-07-24 15:09 | ECHO ---
Name: KRYSTA TOMPKINS Exam:Adult Echocardiogram Study Date: 07/24/2018 10:56 AM Age: 68 yrs Reason For Study: Aflutter Height: 64 in Weight: 258 lb BSA: 2.2 m2 MMode/2D Measurements & Calculations IVSd: 0.83 cm Ao root diam: 3.0 cm LVIDd: 4.3 cm LA dimension: 3.2 cm LVIDs: 2.8 cm LVPWd: 0.67 cm EDV(Teich): 82.0 ml LVOT diam: 2.1 cm ESV(Teich): 30.3 ml Doppler Measurements & Calculations MV E max jatinder: 96.6 cm/sec TR max jatinder: 209.4 cm/sec MV A max jatinder: 59.4 cm/sec TR max P.6 mmHg MV E/A: 1.6 Procedure A complete two-dimensional transthoracic echocardiogram was performed (2D, M-mode, Doppler and color flow Doppler). Technically limited study. Left Ventricle The left ventricle is normal in size. Left ventricular systolic function is normal. Ejection Fraction = 60- 65%. No regional wall motion abnormalities noted. Right Ventricle The right ventricle is normal size. The right ventricular systolic function is normal. Atria The left atrial size is normal. Right atrial size is normal. Mitral Valve The mitral valve is normal in structure and function. There is no mitral regurgitation noted. Tricuspid Valve The tricuspid valve is normal in structure and function. There is Trace to mild tricuspid regurgitati on. Right ventricular systolic pressure is normal. Aortic Valve There is mild aortic sclerosis.;. Mild aortic regurgitation. Pulmonic Valve The pulmonic valve is not well visualized. Great Vessels The aortic root is normal size. Pericardium/Pleura There is no pericardial effusion. Interpretation Summary Technically limited study The left ventricle is normal in size. Left ventricular systolic function is normal. No regional wall motion abnormalities noted. Ejection Fraction = 60-65%. The right ventricular systolic function is normal. The left atrial size is normal. Right atrial size is normal. There is Trace to mild tricuspid regurgitation. Right ventricular systolic pressure is normal. There is mild aortic sclerosis.; Mild aortic regurgitation. There is no pericardial effusion. Previous study is not available for comparison Renato Liang MD 07/24/2018 03:09 PM
--- NOTE | 2018-07-24 17:31 | EKG ---
Test Reason : Blood Pressure : / mmHG Vent. Rate : 055 BPM Atrial Rate : 055 BPM P-R Int : 154 ms QRS Dur : 080 ms QT Int : 440 ms P-R-T Axes : 064 035 034 degrees QTc Int : 420 ms SINUS BRADYCARDIA OTHERWISE NORMAL ECG WHEN COMPARED WITH ECG OF 22-JUL-2018 11:34, NO SIGNIFICANT CHANGE WAS FOUND Confirmed by KISHAN WEINBERG MD ([id number]) on 07/24/2018 5:31:34 PM Referred By: Diallo Clark Confirmed By:KISHAN WEINBERG MD
--- NOTE | 2018-07-27 16:47 | EKG ---
Test Reason : Blood Pressure : / mmHG Vent. Rate : 061 BPM Atrial Rate : 061 BPM P-R Int : 164 ms QRS Dur : 074 ms QT Int : 426 ms P-R-T Axes : 067 035 036 degrees QTc Int : 428 ms NORMAL SINUS RHYTHM NORMAL ECG WHEN COMPARED WITH ECG OF 22-JUL-2018 09:17, SINUS RHYTHM HAS REPLACED ATRIAL FLUTTER VENT. RATE HAS DECREASED BY [address] NO LONGER DEPRESSED IN INFERIOR LEADS ST NO LONGER DEPRESSED IN ANTEROLATERAL LEADS NONSPECIFIC T WAVE ABNORMALITY NO LONGER EVIDENT IN LATERAL LEADS Confirmed by FITO BUNCH MD ([id number]) on 07/27/2018 4:46:31 PM Referred By: Diallo Clark Confirmed By:FITO BUNCH MD
== END 2018-07-24 17:10 | disposition home or self-care (01) ==
LOC: FER 09:05 → FM/S 10:52
PROVIDERS: ATTEND Nurse Practitioner Acute Care
PROC: 3E033GC Introduction of Other Therapeutic Substance into Peripheral Vein, Percutaneous Approach (ICD-10-PCS; principal; 2018-07-22)
PROC: 3E0337Z Introduction of Electrolytic and Water Balance Substance into Peripheral Vein, Percutaneous Approach (ICD-10-PCS; 2018-07-22)
DX: I48.91 Unspecified atrial fibrillation (principal); I48.92 Unspecified atrial flutter; B18.2 Chronic viral hepatitis C; D64.9 Anemia, unspecified; G47.33 Obstructive sleep apnea (adult) (pediatric); E66.9 Obesity, unspecified; Z68.41 Body mass index [BMI] 40.0-44.9, adult; Z87.891 Personal history of nicotine dependence
CPT/HCPCS: 36415; 71045-TC-FY; 71275-TC; 80053; 81003; 83735; 84443; 84484; 85025; 85027; 85610; 85730; 87086; 93005; 93306-TC; 96361; 96365; 96366; 96375; 99285-25; G0378; J1644; J7030

== ENCOUNTER 2021-06-17 08:29 | Day surgery (SDC) | payer OTHER ==
[2021-06-17] MEDS: CYCLOPENTOLATE 2% OPHTH SOLN 2 ML BOTTLE ONE ×3 (09:15→09:25)
[2021-06-17] MEDS: CIPROFLOXACIN 0.3% EYE DROPS 5 ML BOTTLE ONE ×3 (09:15→09:25)
[2021-06-17] MEDS: PHENYLEPHRINE 2.5% OPHTH SOLN 15 ML BOTTLE ONE ×3 (09:15→09:25)
[2021-06-17] MEDS: TROPICAMIDE 1% OPHTH SOLN 15 ML BOTTLE ONE ×3 (09:15→09:25)
[2021-06-17 09:17] VITALS: BMI 43.4
[2021-06-17] MEDS ORDERED: TETRACAINE 0.5% OPHTH SOLN 2 ML BOTTLE ONE (09:22)
[2021-06-17] MEDS ORDERED: BSS (NA/CA/MG/K) BALANCED SALT SOLUTION OPHTH SOLN 15 ML BOTTLE ONE (09:22)
[2021-06-17] MEDS ORDERED: LIDOCAINE 1% P/F 10 MG/ML VIAL ONE (09:22)
[2021-06-17] MEDS ORDERED: NEO/POLYMYX B SULF/DEXAMETH OPHTHALMIC 5ML BOTTLE ONE (09:22)
[2021-06-17] MEDS ORDERED: CARBACHOL 0.01% INTRA-OCULAR 1.5 ML VIAL ONE (09:22)
[2021-06-17] MEDS ORDERED: MIDAZOLAM HCL 2 MG/2 ML SINGLE DOSE VIAL ONE (10:46)
[2021-06-17] MEDS ORDERED: ONDANSETRON 4 MG/2 ML VIAL ONE (10:46)
[2021-06-17 11:38] VITALS: TEMP 97.8
[2021-06-17 11:51] VITALS: BP 131/64; PULSE 67
== END 2021-06-17 11:54 | disposition home or self-care (01) ==
LOC: FASU 08:29
PROVIDERS: ATTEND Ophthalmology
PROC: 08RK3JZ Replacement of Left Lens with Synthetic Substitute, Percutaneous Approach (ICD-10-PCS; principal; 2021-06-17 10:00)
DX: H26.8 Other specified cataract (principal)

== ENCOUNTER 2021-07-15 09:27 | Day surgery (SDC) | payer OTHER ==
[2021-07-13 11:35] VITALS: BMI 43.4
[2021-07-15] MEDS: CYCLOPENTOLATE 2% OPHTH SOLN 2 ML BOTTLE ONE ×3 (11:05→11:15)
[2021-07-15] MEDS: CIPROFLOXACIN 0.3% EYE DROPS 5 ML BOTTLE ONE ×3 (11:05→11:15)
[2021-07-15] MEDS: PHENYLEPHRINE 2.5% OPHTH SOLN 15 ML BOTTLE ONE ×3 (11:05→11:15)
[2021-07-15] MEDS: TROPICAMIDE 1% OPHTH SOLN 15 ML BOTTLE ONE ×3 (11:05→11:15)
[2021-07-15 11:07] VITALS: TEMP 97.7
[2021-07-15] MEDS ORDERED: MIDAZOLAM HCL 2 MG/2 ML SINGLE DOSE VIAL ONE (12:11)
[2021-07-15] MEDS ORDERED: NEO/POLYMYX B SULF/DEXAMETH OPHTHALMIC 5ML BOTTLE ONE (12:29)
[2021-07-15] MEDS ORDERED: CARBACHOL 0.01% INTRA-OCULAR 1.5 ML VIAL ONE (12:29)
[2021-07-15] MEDS ORDERED: BSS (NA/CA/MG/K) BALANCED SALT SOLUTION OPHTH SOLN 15 ML BOTTLE ONE (12:29)
[2021-07-15] MEDS ORDERED: TETRACAINE 0.5% OPHTH SOLN 2 ML BOTTLE ONE (12:29)
[2021-07-15] MEDS ORDERED: LIDOCAINE 1% P/F 10 MG/ML VIAL ONE (12:29)
[2021-07-15] MEDS ORDERED: ONDANSETRON 4 MG/2 ML VIAL ONE (13:06)
[2021-07-15 14:22] VITALS: BP 139/71; PULSE 60
== END 2021-07-15 14:40 | disposition home or self-care (01) ==
LOC: FASU 09:27
PROVIDERS: ATTEND Ophthalmology
PROC: 08RJ3JZ Replacement of Right Lens with Synthetic Substitute, Percutaneous Approach (ICD-10-PCS; principal; 2021-07-15 12:51)
DX: H26.8 Other specified cataract (principal)